=== PATIENT | female | born 1940 ===

== ENCOUNTER → 2018-03-02 | Outpatient (CLI) | payer MEDICARE ==
[2018-03-02 11:58] LABS: BASOPHILS ABSOLUTE AUTO 0.01 K/mm3 (0.00-0.23); BASOPHILS PERCENT AUTO 0 % (0-2); EOSINOPHILS ABSOLUTE AUTO 0.03 K/mm3 (0.00-0.68); EOSINOPHILS PERCENT AUTO 0 % (0-6); Hematocrit 38.1 % (33.0-51.0); Hemoglobin 12.2 g/dL (11.5-16.0); IMMATURE GRAN ABSOLUTE AUTO 0.01 K/mm3 (0.00-0.10); IMMATURE GRAN PERCENT AUTO 0 % (0-1); LYMPHOCYTES ABSOLUTE AUTO 1.89 K/mm3 (0.84-5.20); LYMPHOCYTES PERCENT AUTO 26 % (21-46); MONOCYTES ABSOLUTE AUTO 1.35 K/mm3 (0.16-1.47); MONOCYTES PERCENT AUTO 19 % (4-13); Mean Corpuscular HGB 27.2 pg (26.0-34.0); Mean Corpuscular Volume 85 fL (80-100); Mean Platelet Volume 10.5 fL (9.1-12.4); NEUTROPHILS ABSOLUTE AUTO 3.92 K/mm3 (1.96-9.15); NEUTROPHILS PERCENT AUTO 55 % (41-73); Platelet Count 173 K/mm3 (150-400); RDW Coefficient Variation 13.9 % (11.7-14.2); RDW Standard Deviation 42.9 fL (35.1-46.3); Red Blood Cell Count 4.49 M/mm3 (3.80-5.20); White Blood Cell Count 7.21 K/mm3 (4.00-11.30)
[2018-03-02 12:13] LABS: Bun/Creatinine Ratio 18.1 (12.0-20.0); Calcium, Blood 9.5 mg/dL (8.5-10.1); Creatinine, Blood 1.27 mg/dL (0.40-1.00); Potassium, Blood 4.2 mmol/L (3.5-5.5)
== END | disposition home or self-care (01) ==
LOC: LAB EV 11:55 → LAB SHORT 11:55
PROVIDERS: Family Medicine
DX: K11.20 Sialoadenitis, unspecified (principal)
CPT/HCPCS: 80048; 85025

== ENCOUNTER 2018-03-31 02:12 | Day surgery (SDC) | payer MEDICARE | END 2018-03-31 23:00 | disposition home or self-care (01) | LOC: CT 02:12 | PROVIDERS: Radiology Diagnostic Radiology | PROC: 0BBF3ZX Excision of Right Lower Lung Lobe, Percutaneous Approach, Diagnostic (ICD-10-PCS; principal; 2018-03-31 11:00) | DX: C34.31 Malignant neoplasm of lower lobe, right bronchus or lung (principal) | CPT/HCPCS: 32405; 77012 ==

== ENCOUNTER 2018-04-14 08:18 | Day surgery (SDC) | payer MEDICARE ==
[~2018-04-14] VITALS: Ht 157.5 cm; Wt 99.8 kg
[2018-04-14] MEDS ORDERED: ASPI81CH PO (10:52)
[2018-04-14] MEDS ORDERED: SUCR1 PO (10:53)
[2018-04-14] MEDS ORDERED: FURO40 PO (10:54)
[2018-04-14] MEDS ORDERED: GLIP10 PO (10:54)
[2018-04-14] MEDS ORDERED: POTCHL20ER PO (10:57)
[2018-04-14] MEDS ORDERED: LISI5 PO (10:57)
[2018-04-14] MEDS ORDERED: LORPSEER24 PO (10:57)
[2018-04-14] MEDS ORDERED: METF850 PO (10:57)
[2018-04-14] MEDS ORDERED: PRAV20 PO (10:58)
[2018-04-14] MEDS ORDERED: PROP10 PO (10:59)
[2018-04-14 13:34] LABS: International Normalized Ratio 1.33; Prothrombin Time Results 13.5 Sec (9.7-11.5)
== END 2018-04-14 16:58 | disposition home or self-care (01) ==
LOC: ORSCMMR 08:18
PROVIDERS: Surgery
PROC: 0JH63WZ Insertion of Totally Implantable Vascular Access Device into Chest Subcutaneous Tissue and Fascia, Percutaneous Approach (ICD-10-PCS; principal; 2018-04-14 11:45)
DX: C34.31 Malignant neoplasm of lower lobe, right bronchus or lung (principal); I25.2 Old myocardial infarction; I10 Essential (primary) hypertension; I87.8 Other specified disorders of veins; E11.9 Type 2 diabetes mellitus without complications; Z99.81 Dependence on supplemental oxygen; Z87.891 Personal history of nicotine dependence; E66.01 Morbid (severe) obesity due to excess calories; Z68.41 Body mass index [BMI] 40.0-44.9, adult; Z79.01 Long term (current) use of anticoagulants; Z79.84 Long term (current) use of oral hypoglycemic drugs; Z79.899 Other long term (current) drug therapy
CPT/HCPCS: 77001; 82947; 85610; C1788; J0690; J1642; J2250; J2370; J2405; J3010; J7120